=== PATIENT | male | born 1990 | race Caucasian/White ===

== ENCOUNTER 2022-01-05 06:57 | Day surgery (SDC) | payer OTHER ==
[2022-01-05] MEDS ORDERED: Midazolam 1 MG/ML 2 ML SDV ONE (07:03)
[2022-01-05] MEDS ORDERED: fentaNYL 100 MCG/2 ML SDV ONE (07:03)
[2022-01-05] MEDS ORDERED: Propofol 200 MG/20 ML SDV ONE (07:03)
[2022-01-05] MEDS ORDERED: Dextrose 5%-Lactated Ringers 1,000 ML IV SCH (08:00)
[2022-01-05] MEDS ORDERED: Glycopyrrolate 0.2 MG/ML 2 ML SDV IVPUSH ONE (08:30)
[2022-01-05] MEDS ORDERED: Pantoprazole 40 MG Vial IVPUSH ONE (08:49)
== END 2022-01-05 09:59 | disposition home or self-care (01) ==
LOC: JP.SDS 06:57
PROVIDERS: ATTEND Surgery
DX: R13.13 Dysphagia, pharyngeal phase (principal); K44.9 Diaphragmatic hernia without obstruction or gangrene; F43.10 Post-traumatic stress disorder, unspecified; F32.A Depression, unspecified; Z79.899 Other long term (current) drug therapy
CPT/HCPCS: 43239; 87081; 88305; C9113; J2250; J2704; J3010; J3490; J7121